=== PATIENT | male | born 1930 | race Caucasian/White ===

== ENCOUNTER → 2016-09-23 | Outpatient (CLI) | payer OTHER ==
--- NOTE | 2016-09-23 15:08 | MR ---
MRI of the Right Shoulder History: Shoulder pain. Technique: Axial proton density, oblique coronal, and sagittal T1 and T2 images were acquired. Findings: The supraspinatus tendon is completely torn and retracted to the glenohumeral joint level. Mild fatty atrophy of the supraspinatus muscle. The subscapularis tendon is also completely torn a nd retracted to the glenohumeral joint level, with mild fatty atrophy of the subscapularis muscle. H igh-grade partial tear of the infraspinatus tendon is present distally, with marked attenuation of fi bers and partial retraction, without fatty atrophy of muscle. Teres minor is intact. Mild chondral loss within the glenohumeral joint, without focal chondral deficit. Moderate shoulder joint effusion. No displaced labral tear. Marked attenuation of long head biceps tendon compatible with chronic tendinosis. The tendon is rosalba edly attenuated at the superior labral attachment and may be completely torn, with scarring of the te ndon in the tendon sheath more proximally. The acromioclavicular joint is moderately degenerative. Impressions 1. Full-thickness tear of supraspinatus tendon, with retraction and mild muscular atrophy. 2. Full-thickness tear of subscapularis tendon, with retraction and mild muscular atrophy. 3. Suspect full-thickness tear long head biceps tendon, intraarticular aspect, with scarring of the tendon within the tendon sheath. 4. High-grade partial tear infraspinatus tendon, with marked attenuation of distal fibers.
== END ==
LOC: FIMAGING 07:51
PROVIDERS: ATTEND Internal Medicine
DX: S46.111A Strain of muscle, fascia and tendon of long head of biceps, right arm, initial encounter (principal); S46.011A Strain of muscle(s) and tendon(s) of the rotator cuff of right shoulder, initial encounter

== ENCOUNTER 2016-10-19 08:19 | Inpatient (IN) | payer OTHER ==
[~2016-10-19 08:19] MED LIST: ceFAZolin 2 GM/DEXTROSE 100 ML IV ONE
[2016-10-19] MEDS ORDERED: CEFAZOLIN 2 GM/DEXTROSE/100 ML BAG IV ONE (08:38)
[2016-10-19] MEDS ORDERED: LIDOCAINE 1% 5 ML SDV ONE (08:39)
[2016-10-19] MEDS ORDERED: PROPOFOL 200 MG/20 ML VIAL ONE ×2 (09:24→10:54)
[2016-10-19] MEDS ORDERED: ROPIVACAINE HCL 150 MG/30 ML INJ ONE (09:24)
[2016-10-19] MEDS ORDERED: fentaNYL 250 MCG/5 ML INJ ONE (09:25)
[2016-10-19] MEDS ORDERED: LIDOCAINE 2% 5 ML SDV ONE (09:27)
[2016-10-19 09:36] LABS: INR 1.13 (0.83-1.16); PROTIME(PATIENT) 14.4 SEC (12.0-15.0)
[2016-10-19] MEDS ORDERED: BACITRACIN 50,000 UNITS/10 ML SYR IRR ONE (09:40)
[2016-10-19] MEDS ORDERED: BUPIVACAINE 0.5% 30 ML SDV ONE (09:40)
[2016-10-19] MEDS ORDERED: BUPIVACAINE/EPI 0.5% 30 ML SDV ONE (09:40)
[2016-10-19] MEDS ORDERED: POLYMYXIN B SULFATE 500,000 UNIT/10 ML SYR IRR ONE (09:41)
[2016-10-19] MEDS ORDERED: MIDAZOLAM 2 MG/2 ML VIAL ONE (10:05)
[2016-10-19] MEDS ORDERED: SKIN ADHESIVE (DERMABOND) 1 EACH TP ONE (11:44)
[2016-10-19] MEDS ORDERED: ONDANSETRON 4 MG/2 ML VIAL ONE (11:44)
[2016-10-19] MEDS ORDERED: DEXAMETHASONE 4 MG/ML VIAL ONE (11:44)
[2016-10-19] MEDS ORDERED: fentaNYL 100 MCG/2 ML INJ ONE (12:12)
--- NOTE | 2016-10-19 12:57 | GOP ---
[f rep st] OPERATIVE REPORT DATE OF OPERATION: 10/19/2016 SURGEON: Shahriar Romano MD GRINDER OPERATOR: Pato Nuñez, CSFA, LSA ANESTHESIA: Dorian Pearson MD PREOPERATIVE DIAGNOSIS: Large, full-thickness right shoulder rotator cuff tear. POSTOPERATIVE DIAGNOSIS: Large, full-thickness right shoulder rotator cuff tear. PROCEDURE PERFORMED: Right shoulder open decompression and rotator cuff repair involving the upper s ubscapularis, entire supraspinatus, and a portion of the infraspinatus. FINDINGS: INDICATIONS: The patient is an 86-year-old gentleman who had good shoulder function up until about 3 weeks ago when he had a hard fall and he lost the ability to elevate his arm. MRI shows a large ful l-thickness rotator cuff tear and bony impingement anatomy as well. Rotator cuff repair is planned. DESCRIPTION OF PROCEDURE: The patient was taken to the operating room, and an ultrasound-guided scal edmar block was provided by Dr. Pearson. He was then placed under general anesthetic. He received 2 g of IV Ancef. He was placed in a semi beach chair position with a roll beneath the right scapula t o project the shoulder forward and the right shoulder and arm were prepped and draped free in the usu al fashion. He has a DVT and PE history and therefore we were very careful about his leg positioning , used stockings, pneumatic pumpers. I made a longitudinal incision over the anterolateral corner of the shoulder after pre-injecting the incision with Marcaine with epinephrine. Dissection was lorraine d down to subcutaneous tissue and I mobilized this layer to visualize the deltoid. I found the plane between the anterior and lateral fibers of the deltoid and carried this incision up over the anterol ateral corner of the acromion and exposed the very tip of the anterolateral acromion. I used an osci llating saw vertically and horizontally to remove a very prominent bone spur. I did a bursectomy to visualize the cuff. I mobilized the rotator cuff gently, bluntly dissecting throughout the anterior shoulder over the subscapularis, superiorly at the supraspinatus, posteriorly at the infraspinatus, t o mobilize the cuff. This was a large, basically V-shaped tear. I used tag sutures in the edges of it so that I could mobilize the cuff and I could also determine its best placement on the on the bone of the humeral head. I made a bony trough with a rongeur, basically extending posteriorly from the bicipital groove. I used a [employer] device to make multiple curved transosseous tunnels, emerging in the footprint of the cuff on the greater tuberosity. I did a couple convergent sutures and this brou ght the rotator cuff more superiorly up onto the top of the head and made the overall tear size much smaller. I then used #2 FiberWire through the multiple transosseous tunnels to stand back into the t issue of the rotator cuff, reaching quite deeply so that I got good full-thickness purchase, and thes e were tied with multiple knots, and this really reduced the rotator cuff into its footprint anatomic ally. There was not undue tension, the combination of the convergent sutures and the transosseous figueroa tures nicely reapposed the cuff. Irrigation was used throughout. I closed the deltoid fascia over t he anterolateral corner of the acromion using #2 FiberWire. I then used 0 PDS, subcutaneous tissue r eceived 3-0 Monocryl, and the skin 3-0 Monoderm, with glue, Telfa, and an Opsite. The patient was pl aced in a large abduction pillow because of the deltoid approach and the large tear. There were no c omplications. Estimated blood loss was less then 30 cc. No drains, no specimens. All counts were c orrect. The patient was taken in stable condition to recovery. My medical receptionist medical assistant was a medical necessity for this challenging large open cuff repair. /[id number]/MODL
[2016-10-19] MEDS ORDERED: LACTULOSE 20 GM/30 ML UDCUP PO PRN (13:05)
[2016-10-19] MEDS ORDERED: ACETAMINOPHEN 325 MG TAB PO PRN (13:05)
[2016-10-19] MEDS ORDERED: MAGNESIUM HYDROXIDE 30 ML UDCUP PO PRN (13:05)
[2016-10-19] MEDS ORDERED: OXYCODONE/APAP 5/325 TAB PO PRN (13:05)
[2016-10-19] MEDS ORDERED: POLYETHYLENE GLYCOL 3350 17 GM PKT PO PRN (13:05)
[2016-10-19] MEDS ORDERED: BISACODYL 10 MG SUPP PR PRN (13:05)
[2016-10-19] MEDS ORDERED: ONDANSETRON 4 MG/2 ML VIAL IVP PRN (13:05)
[2016-10-19] MEDS ORDERED: D5W 1/2 NS W/ 20 KCl/L 1,000 ML IV SCH (13:15)
[2016-10-19] MEDS ORDERED: ceFAZolin 2 GM/DEXTROSE 100 ML IV SCH (14:00)
[2016-10-19] MEDS: HYDROCODONE/APAP 5/325 TAB PO PRN ×2 (14:42→21:41)
[2016-10-19] MEDS ORDERED: WARFARIN SODIUM 5 MG TAB PO ONE (16:00)
[2016-10-19] MEDS: KETOROLAC 15 MG/1 ML SDV IVP SCH (17:33)
[2016-10-19] MEDS: ceFAZolin 2 GM in D5W 100 ML IV SCH (17:34)
[2016-10-19] MEDS: SENNOSIDES/DOCUSATE SODIUM TAB PO SCH (21:37)
[2016-10-19] MEDS: ZOLPIDEM TARTRATE 5 MG TAB PO PRN (21:38)
[2016-10-19] MEDS: DOCUSATE SODIUM 100 MG CAP PO SCH (21:42)
[2016-10-20] MEDS: ceFAZolin 2 GM in D5W 100 ML IV SCH (02:00)
[2016-10-20] MEDS: KETOROLAC 15 MG/1 ML SDV IVP SCH ×3 (02:00→12:52)
[2016-10-20 05:03] LABS: INR 1.22 (0.83-1.16); PROTIME(PATIENT) 15.4 SEC (12.0-15.0)
[2016-10-20] MEDS: FINASTERIDE 5 MG TAB PO SCH (09:00)
[2016-10-20] MEDS: DOCUSATE SODIUM 100 MG CAP PO SCH ×2 (09:00→21:37)
[2016-10-20] MEDS: DONEPEZIL HCL 5 MG TAB PO SCH (09:00)
[2016-10-20] MEDS: SENNOSIDES/DOCUSATE SODIUM TAB PO SCH ×2 (09:01→21:37)
[2016-10-20] MEDS: FLUTICASONE/SALMETER 250/50MCG DISKUS IH PRN (09:17)
[2016-10-20] MEDS: TIOTROPIUM INHALER 18 MCG/DOSE 5 DOSE/MDI IH SCH (09:17)
--- NOTE | 2016-10-20 09:33 | SOAPPROG ---
SOAP Progress Note Assessment/Plan: Assessment: Afebrile. Mod pain. Wound is dry. Abd pillow is fine. Plan: Work with PT for ambulation. He has a left foot drop and normally uses a walker. We'll have to see is he can use the walker with an abd pillow on the right side. DC later today. 10/20/16 09:31 Objective: Vital Signs Temp Pulse Resp BP Pulse Ox 36.9 C 68 16 122/72 H 95 10/20/16 08:07 10/20/16 08:07 10/20/16 08:07 10/20/16 08:07 10/20/16 08:07 10/19/16 10/20/16 10/21/16 05:59 05:59 05:59 Intake Total 2605 Output Total 235 Balance 2370 PT 15.4 SEC (12.0-15.0) H 10/20/16 04:30 INR 1.22 (0.83-1.16) H 10/20/16 04:30 ICD10 Worksheet Patient Problems: Problems Problem Status Diagnosed Intramuscular hematoma Acute Radiculopathy of lumbar region Acute TIA (transient ischemic attack) Acute
[2016-10-20] MEDS ORDERED: WARFARIN SODIUM 7.5 MG TAB PO SCH (16:00)
[2016-10-20] MEDS: WARFARIN SODIUM 5 MG TAB PO SCH (16:10)
[2016-10-20] MEDS: HYDROCODONE/APAP 5/325 TAB PO PRN (18:01)
[2016-10-20] MEDS: ZOLPIDEM TARTRATE 5 MG TAB PO PRN (21:37)
[2016-10-21] MEDS: HYDROCODONE/APAP 5/325 TAB PO PRN ×2 (03:27→20:08)
[2016-10-21 05:33] LABS: INR 1.52 (0.83-1.16); PROTIME(PATIENT) 18.3 SEC (12.0-15.0)
[2016-10-21] MEDS: DOCUSATE SODIUM 100 MG CAP PO SCH ×2 (07:47→21:13)
[2016-10-21] MEDS: DONEPEZIL HCL 5 MG TAB PO SCH (07:47)
[2016-10-21] MEDS: FINASTERIDE 5 MG TAB PO SCH (07:47)
[2016-10-21] MEDS: SENNOSIDES/DOCUSATE SODIUM TAB PO SCH ×2 (07:47→21:13)
[2016-10-21] MEDS: FLUTICASONE/SALMETER 250/50MCG DISKUS IH PRN (08:16)
[2016-10-21] MEDS: TIOTROPIUM INHALER 18 MCG/DOSE 5 DOSE/MDI IH SCH (08:17)
[2016-10-21] MEDS ORDERED: Herbals/Supplements -Info Only PO SCH (09:00)
--- NOTE | 2016-10-21 13:42 | SOAPPROG ---
SOAP Progress Note Assessment/Plan: Assessment: POD#2, R rotator cuff repair, pain controlled Plan: 10/21/16 13:41 mobility and balance issues, awaiting rehab placement Objective: Vital Signs Temp Pulse Resp BP Pulse Ox 36.8 C 79 16 162/78 H 92 10/21/16 11:43 10/21/16 11:43 10/21/16 11:43 10/21/16 11:43 10/21/16 11:43 10/20/16 10/21/16 10/22/16 05:59 05:59 05:59 Intake Total 2605 900 225 Output Total 235 850 250 Balance 2370 50 -25 PT 18.3 SEC (12.0-15.0) H 10/21/16 04:29 INR 1.52 (0.83-1.16) H 10/21/16 04:29 ICD10 Worksheet Patient Problems: Problems Problem Status Diagnosed Intramuscular hematoma Acute Radiculopathy of lumbar region Acute TIA (transient ischemic attack) Acute
[2016-10-21] MEDS: WARFARIN SODIUM 5 MG TAB PO SCH (16:04)
[2016-10-21] MEDS: ZOLPIDEM TARTRATE 5 MG TAB PO PRN (21:13)
[2016-10-22 05:10] LABS: INR 1.68 (0.83-1.16); PROTIME(PATIENT) 19.8 SEC (12.0-15.0)
[2016-10-22] MEDS: DOCUSATE SODIUM 100 MG CAP PO SCH ×2 (08:18→21:45)
[2016-10-22] MEDS: SENNOSIDES/DOCUSATE SODIUM TAB PO SCH ×2 (08:18→21:44)
[2016-10-22] MEDS: DONEPEZIL HCL 5 MG TAB PO SCH (08:19)
[2016-10-22] MEDS: FINASTERIDE 5 MG TAB PO SCH (08:19)
[2016-10-22] MEDS: HYDROCODONE/APAP 5/325 TAB PO PRN ×4 (08:21→21:44)
[2016-10-22] MEDS: TIOTROPIUM INHALER 18 MCG/DOSE 5 DOSE/MDI IH SCH (09:07)
[2016-10-22] MEDS: FLUTICASONE/SALMETER 250/50MCG DISKUS IH PRN (09:07)
[2016-10-22] MEDS: WARFARIN SODIUM 5 MG TAB PO SCH (17:16)
--- NOTE | 2016-10-22 17:53 | SOAPPROG ---
SOAP Progress Note Assessment/Plan: Assessment: POD#2, R rotator cuff repair, pain controlled POD#2, comfortable in pillow, dressing clean Plan: 10/21/16 13:41 mobility and balance issues, awaiting rehab placement 10/22/16 17:52 to rehab tomorrow, [facility] in chart Objective: Vital Signs Temp Pulse Resp BP Pulse Ox 36.8 C 69 18 117/54 L 93 10/22/16 12:26 10/22/16 12:26 10/22/16 12:26 10/22/16 12:26 10/22/16 12:26 10/21/16 10/22/16 10/23/16 05:59 05:59 05:59 Intake Total 900 475 Output Total 850 975 Balance 50 -500 PT 19.8 SEC (12.0-15.0) H 10/22/16 04:19 INR 1.68 (0.83-1.16) H 10/22/16 04:19 ICD10 Worksheet Patient Problems: Problems Problem Status Diagnosed Intramuscular hematoma Acute Radiculopathy of lumbar region Acute TIA (transient ischemic attack) Acute
[2016-10-22] MEDS: ZOLPIDEM TARTRATE 5 MG TAB PO PRN (21:45)
[2016-10-23 05:24] LABS: INR 1.68 (0.83-1.16); PROTIME(PATIENT) 19.8 SEC (12.0-15.0)
[2016-10-23 07:32] VITALS: BP 144/80; PULSE 76; RESP 20; TEMP 98.3; O2SAT 2
[2016-10-23] MEDS: FINASTERIDE 5 MG TAB PO SCH (08:34)
[2016-10-23] MEDS: SENNOSIDES/DOCUSATE SODIUM TAB PO SCH (08:34)
[2016-10-23] MEDS: DONEPEZIL HCL 5 MG TAB PO SCH (08:34)
[2016-10-23] MEDS: DOCUSATE SODIUM 100 MG CAP PO SCH (08:34)
[2016-10-23] MEDS: TIOTROPIUM INHALER 18 MCG/DOSE 5 DOSE/MDI IH SCH (08:35)
--- NOTE | 2016-10-23 14:55 | SOAPPROG ---
SOAP Progress Note Assessment/Plan: Assessment: POD#2, R rotator cuff repair, pain controlled POD#2, comfortable in pillow, dressing clean POD#3 ready for transfer Plan: 10/21/16 13:41 mobility and balance issues, awaiting rehab placement 10/22/16 17:52 to rehab tomorrow, [facility] in chart 10/23/16 14:55 to rehab today Objective: Vital Signs Temp Pulse Resp BP Pulse Ox 36.8 C 76 20 144/80 H 2 L 10/23/16 07:31 10/23/16 07:31 10/23/16 07:31 10/23/16 07:31 10/23/16 07:31 10/22/16 10/23/16 10/24/16 05:59 05:59 05:59 Intake Total 475 Output Total 975 650 150 Balance -500 -650 -150 PT 19.8 SEC (12.0-15.0) H 10/23/16 04:17 INR 1.68 (0.83-1.16) H 10/23/16 04:17 ICD10 Worksheet Patient Problems: Problems Problem Status Diagnosed Intramuscular hematoma Acute Radiculopathy of lumbar region Acute TIA (transient ischemic attack) Acute
--- NOTE | 2016-10-23 15:15 | PDIAF ---
- Diagnosis Code Status: Full Code - Medication Management Discharge Medications: Medications to Continue on Transfer Donepezil HCl [Aricept 5 MG (*)] 5 mg PO DAILY 09/28/15 [Last Taken 10/19/16] Tiotropium Inhaler [Spiriva Handihaler] 18 mcg IH DAILY 09/29/15 [Last Taken 02/27] Docusate Sodium [Colace 100 MG (*)] 100 mg PO BID 10/08/16 [Last Taken 10/19/16] Finasteride [Proscar 5 MG (*)] 5 mg PO DAILY 10/08/16 [Last Taken 10/19/16] Herbals/Supplements -Info Only 1 ea PO DAILY 10/08/16 [Last Taken 10/12/16] Fluticasone/Salmeter 250/50Mcg [Advair 250/50 (*)] 2 puffs IH DAILY PRN [Last Taken 10/18/16] Warfarin Sodium [Coumadin 7.5MG (*)] 7.5 mg PO DAILY16 10/19/16 [Last Taken ] Zolpidem Tartrate [Ambien 10 mg] 10 mg PO HS 10/19/16 [Last Taken 10/18/16] Acetaminophen [Tylenol 325mg (*)] 325 - 650 mg PO Q4HRS PRN #0 tab 10/20/16 [ Last Taken Unknown] oxyCODONE/APAP 5/325 [Percocet 5/325 (*)] 1 - 2 tab PO Q3HRS PRN #40 tab [Last Taken Unknown] Discharge Medications: Refer to the Discharge Home Medication list for PRN reason. - Orders Services needed: Registered Nurse, Physical Therapy, Occupational Therapy Diet Recommendation: no restrictions on diet Diet Texture: Regular Texture Diet - Follow Up Care Current Providers and Referrals: Woody Muñoz MD [Primary Care Provider] - Shahriar Romano MD [Medical Doctor] -
[2016-10-23] MEDS: WARFARIN SODIUM 5 MG TAB PO SCH (15:29)
[2016-10-23] MEDS: HYDROCODONE/APAP 5/325 TAB PO PRN (15:32)
[2016-10-23] MEDS ORDERED: WARFARIN SODIUM 1 MG TAB PO SCH (16:00)
== END 2016-10-23 16:58 | DRG 512 ==
LOC: F3N 08:19 → INTOOBSV 08:19 → EDSTATUS 10:00 → F3N 13:25 → OBSVTOIN 10-20 14:38
PROVIDERS: ADMIT Orthopaedic Surgery; ATTEND Orthopaedic Surgery
DX: S46.011A Strain of muscle(s) and tendon(s) of the rotator cuff of right shoulder, initial encounter (principal); W19.XXXA Unspecified fall, initial encounter; Z86.711 Personal history of pulmonary embolism
CPT/HCPCS: 97116-GP; 97161-GP; 97165-GO; 97530-GP; 97535-GO; G8978-GP-CJ; G8979-GP-CI; G8987-GO-CK; G8988-GO-CI; J0690; J1100; J1885; J2250; J2405; J2704; J2795; J3010

== ENCOUNTER → 2017-01-21 | Outpatient (CLI) | payer OTHER | LOC: CIMAGING 11:49 | PROVIDERS: ATTEND Internal Medicine | DX: R79.89 Other specified abnormal findings of blood chemistry (principal); N28.1 Cyst of kidney, acquired | CPT/HCPCS: 76770-PO ==

== ENCOUNTER → 2017-07-14 | Outpatient (CLI) | payer OTHER | LOC: SBRMNEURO 21:00 | PROVIDERS: ATTEND Physician Assistant Medical | DX: G47.33 Obstructive sleep apnea (adult) (pediatric) (principal); G47.36 Sleep related hypoventilation in conditions classified elsewhere; G47.61 Periodic limb movement disorder ==

== ENCOUNTER → 2018-01-14 | Outpatient (CLI) | payer OTHER | LOC: FIMAGING 15:13 | PROVIDERS: ATTEND Internal Medicine | DX: M51.16 Intervertebral disc disorders with radiculopathy, lumbar region (principal); M51.34 Other intervertebral disc degeneration, thoracic region; M51.37 Other intervertebral disc degeneration, lumbosacral region; M48.061 Spinal stenosis, lumbar region without neurogenic claudication; M48.04 Spinal stenosis, thoracic region; M48.07 Spinal stenosis, lumbosacral region ==

== ENCOUNTER 2018-02-02 12:55 | Day surgery (SDC) | payer OTHER ==
[2018-02-02] MEDS ORDERED: ALTEPLASE 2 MG VIAL IVP PRN (13:03)
[2018-02-02] MEDS ORDERED: MEPERIDINE 25 MG/ML SYR IVP PRN (13:03)
[2018-02-02] MEDS ORDERED: HEPARIN 10,000 UNIT/10 ML MDV (1,000 UNIT/ML) IVP PRN (13:03)
[2018-02-02] MEDS ORDERED: NALOXONE HCL 0.4 MG/ML INJ IVP PRN (13:03)
[2018-02-02] MEDS ORDERED: FLUMAZENIL 0.5 MG/5 ML MDV IVP PRN (13:03)
[2018-02-02] MEDS ORDERED: GLUCAGON HCL 1 MG VIAL IVP PRN (13:03)
[2018-02-02] MEDS ORDERED: MIDAZOLAM 2 MG/2 ML VIAL IVP PRN (13:03)
[2018-02-02] MEDS ORDERED: fentaNYL 100 MCG/2 ML INJ IVP PRN (13:03)
[2018-02-02] MEDS ORDERED: PROTAMINE SULFATE 50 MG/5 ML VIAL IVP PRN (13:03)
[2018-02-02] MEDS ORDERED: NS 1,000 ML IV SCH (13:15)
[2018-02-02] MEDS ORDERED: TRIAMCINOLONE ACETONIDE 200 MG/5 ML MDV IM ONE (13:48)
[2018-02-02] MEDS ORDERED: LIDOCAINE 1% 300 MG/30 ML SDV ONE (13:48)
[2018-02-02] MEDS ORDERED: NALOXONE HCL 0.4 MG/ML INJ ONE (14:08)
[2018-02-02] MEDS ORDERED: MIDAZOLAM 2 MG/2 ML VIAL ONE (14:11)
[2018-02-02] MEDS ORDERED: fentaNYL 100 MCG/2 ML INJ ONE (14:11)
[2018-02-02] MEDS ORDERED: FLUMAZENIL 0.5 MG/5 ML MDV IVP ONE (14:11)
--- NOTE | 2018-02-02 15:24 | PDPROPOC ---
Sedation Plan of Care Sedation Plan of Care: vital signs stable, mental status noted, patient educated of risks, benefits, alternatives, patient can tolerate sedation ASA Classification: ASA 3 Planned drugs: fentanyl, midazolam Mallampati Score: Class 1 Mallampati Reference Image: Patient passed 3-3-2 rule?: Yes
--- NOTE | 2018-02-02 15:24 | PDGENHP ---
History & Physical Chief Complaint: BACK PAIN History of Present Illness: LBP. CHRONIC LT LEG WEAKENSS. NEW ONSET RT LEG WEAKNESS AND PAIN DOWN TO KNEE. Pertinent Past, Social, Family History: CYSTOSCOPY, TURP, ROTATOR CUFF, APPENDECTOMY, TONSILLECTOMY, IVC FILTER PLACEMENT Relevant Physical Exam: 04/22 PAIN Cardiorespiratory Assessment: RRR, CTA
[2018-02-02] MEDS ORDERED: ONDANSETRON 4 MG/2 ML VIAL IVP PRN (15:37)
--- NOTE | 2018-02-02 15:50 | PDRADPN ---
Radiology Procedure Note Date of Procedure: 02/02/18 Radiologist: Lana Aranda Anesthesia: IV Sedation Pre-op Diagnosis: nerve impingement Post-op Diagnosis: same Indication: weakness and pain Procedure: RT L4 TFESI and SNRB Finding(s): positive reproduction of pain Inf/Abcess present in the surg proc area at time of surgery?: No Complications: none
[2018-02-02 17:05] VITALS: BP 134/83
== END 2018-02-02 17:03 | disposition home or self-care (01) ==
LOC: FIMAGING 12:55
PROVIDERS: ATTEND Internal Medicine
PROC: 3E0S33Z Introduction of Anti-inflammatory into Epidural Space, Percutaneous Approach (ICD-10-PCS; principal; 2018-02-02 15:35)
DX: M54.16 Radiculopathy, lumbar region (principal); M51.36 Other intervertebral disc degeneration, lumbar region; M48.07 Spinal stenosis, lumbosacral region
CPT/HCPCS: J2250; J2310; J3010; J3301

== ENCOUNTER 2018-08-23 10:39 | Day surgery (SDC) | payer OTHER ==
[2018-08-23] MEDS ORDERED: MIDAZOLAM 2 MG/2 ML VIAL IVP PRN (11:29)
[2018-08-23] MEDS ORDERED: NALOXONE HCL 0.4 MG/ML INJ IVP PRN (11:29)
[2018-08-23] MEDS ORDERED: FLUMAZENIL 0.5 MG/5 ML MDV IVP PRN (11:29)
[2018-08-23] MEDS ORDERED: fentaNYL 100 MCG/2 ML INJ IVP PRN (11:29)
[2018-08-23] MEDS ORDERED: MEPERIDINE 25 MG/ML SYR IVP PRN (11:29)
[2018-08-23] MEDS ORDERED: NS 1,000 ML IV SCH (11:30)
--- NOTE | 2018-08-23 12:21 | PDGENHP ---
History & Physical Chief Complaint: RECURREN RT LEG PAIN History of Present Illness: PREVIOUS INJECTIONS HAVE HELPED. WEARS OFF EVERY THREE MONTHS. Pertinent Past, Social, Family History: CYSTO, TURP, ROTATOR CUFF Relevant Physical Exam: PAIN DOWN RT ANTERIOR AND LATERAL THIGH. Cardiorespiratory Assessment: RRR, CTA
--- NOTE | 2018-08-23 12:22 | PDPROPOC ---
Sedation Plan of Care Sedation Plan of Care: vital signs stable, mental status noted, patient educated of risks, benefits, alternatives, patient can tolerate sedation ASA Classification: ASA 2 Planned drugs: fentanyl, midazolam Mallampati Score: Class 2 Mallampati Reference Image: Patient passed 3-3-2 rule?: Yes
[2018-08-23] MEDS ORDERED: TRIAMCINOLONE ACETONIDE 200 MG/5 ML MDV IM ONE (12:23)
[2018-08-23] MEDS ORDERED: IOPAMIDOL (ISOVUE-M 300) 15 ML VIAL ONE (12:23)
--- NOTE | 2018-08-23 13:27 | PDRADPN ---
Radiology Procedure Note Date of Procedure: 08/23/18 Radiologist: Lana Aranda Anesthesia: IV Sedation Pre-op Diagnosis: RECURRENT LBP WITH RADICULOPATHY Post-op Diagnosis: SAME Indication: REPEAT BACK INJECTION NEEDED Procedure: RT L4 TFESI Finding(s): SEE REPORT Inf/Abcess present in the surg proc area at time of surgery?: No
[2018-08-23 14:14] VITALS: BP 129/67
== END 2018-08-23 14:48 | disposition home or self-care (01) ==
LOC: FIMAGING 10:39
PROVIDERS: ATTEND Internal Medicine
PROC: 3E0S33Z Introduction of Anti-inflammatory into Epidural Space, Percutaneous Approach (ICD-10-PCS; principal; 2018-08-23 13:20)
PROC: 3E0S3BZ Introduction of Anesthetic Agent into Epidural Space, Percutaneous Approach (ICD-10-PCS; principal; 2018-08-23 13:20)
DX: M54.16 Radiculopathy, lumbar region (principal)
CPT/HCPCS: J2250; J3010; J3301; Q9967

== ENCOUNTER 2018-11-29 10:18 | Day surgery (SDC) | payer OTHER ==
[2018-11-29] MEDS ORDERED: NALOXONE HCL 0.4 MG/ML INJ IVP PRN (10:55)
[2018-11-29] MEDS ORDERED: MIDAZOLAM 2 MG/2 ML VIAL IVP PRN (10:55)
[2018-11-29] MEDS ORDERED: FLUMAZENIL 0.5 MG/5 ML MDV IVP PRN (10:55)
[2018-11-29] MEDS ORDERED: fentaNYL 100 MCG/2 ML INJ IVP PRN (10:55)
[2018-11-29] MEDS ORDERED: NS 1,000 ML IV SCH (11:00)
--- NOTE | 2018-11-29 12:08 | PDPROPOC ---
Sedation Plan of Care Sedation Plan of Care: vital signs stable, mental status noted, patient educated of risks, benefits, alternatives, patient can tolerate sedation ASA Classification: ASA 2 Planned drugs: fentanyl, midazolam Mallampati Score: Class 1 Mallampati Reference Image: Patient passed 3-3-2 rule?: Yes
--- NOTE | 2018-11-29 12:10 | PDGENHP ---
History & Physical Chief Complaint: RECURRENT BACK PAIN History of Present Illness: PREVIOUS INJECTIONS HELPED PAIN. SAME LOCATION. Pertinent Past, Social, Family History: CYSTOSCOPY, TURP, ROTATOR CUFF, APPENDECTOMY, TONSILLECTOMY, IVC FILTER Relevant Physical Exam: RT LEG PAIN FROM BACK TO KNEE Cardiorespiratory Assessment: RRR, CTA
[2018-11-29] MEDS ORDERED: IOPAMIDOL (ISOVUE-M 300) 15 ML VIAL ONE (12:14)
[2018-11-29] MEDS ORDERED: TRIAMCINOLONE ACETONIDE 200 MG/5 ML MDV IM ONE (12:14)
[2018-11-29 12:48] VITALS: BP 148/73
== END 2018-11-29 13:45 | disposition home or self-care (01) ==
LOC: FIMAGING 10:18
PROVIDERS: ATTEND Radiology Diagnostic Radiology
PROC: 3E0S3BZ Introduction of Anesthetic Agent into Epidural Space, Percutaneous Approach (ICD-10-PCS; principal; 2018-11-29)
PROC: B01B1ZZ Fluoroscopy of Spinal Cord using Low Osmolar Contrast (ICD-10-PCS; principal; 2018-11-29)
PROC: 3E0S33Z Introduction of Anti-inflammatory into Epidural Space, Percutaneous Approach (ICD-10-PCS; principal; 2018-11-29)
DX: M54.16 Radiculopathy, lumbar region (principal)
CPT/HCPCS: J2250; J2310; J3010; J3301; Q9967

== ENCOUNTER → 2018-12-19 | Outpatient (CLI) | payer OTHER | LOC: FIMAGING 10:44 | PROVIDERS: ATTEND Internal Medicine | DX: M50.31 Other cervical disc degeneration, high cervical region (principal); M50.321 Other cervical disc degeneration at C4-C5 level; M50.322 Other cervical disc degeneration at C5-C6 level; M50.323 Other cervical disc degeneration at C6-C7 level; M50.33 Other cervical disc degeneration, cervicothoracic region; M99.71 Connective tissue and disc stenosis of intervertebral foramina of cervical region; M12.88 Other specific arthropathies, not elsewhere classified, other specified site ==

== ENCOUNTER → 2019-01-02 | Outpatient (CLI) | payer OTHER | LOC: CIMAGING 13:15 | PROVIDERS: ATTEND Podiatrist | DX: L97.521 Non-pressure chronic ulcer of other part of left foot limited to breakdown of skin (principal); M20.42 Other hammer toe(s) (acquired), left foot; M81.0 Age-related osteoporosis without current pathological fracture | CPT/HCPCS: 73630-PO ==

== ENCOUNTER → 2019-01-10 | Outpatient (CLI) | payer OTHER | DX: G62.9 Polyneuropathy, unspecified (principal) ==

== ENCOUNTER → 2019-01-14 | Outpatient (CLI) | payer OTHER | LOC: FIMAGING 14:05 | PROVIDERS: ATTEND Internal Medicine | DX: L03.116 Cellulitis of left lower limb (principal); I89.0 Lymphedema, not elsewhere classified ==

== ENCOUNTER → 2019-01-23 | Outpatient (CLI) | payer OTHER | LOC: CIMAGING 14:21 | PROVIDERS: ATTEND Internal Medicine | DX: M79.661 Pain in right lower leg (principal); Z79.01 Long term (current) use of anticoagulants | CPT/HCPCS: 93971-PO ==

== ENCOUNTER → 2019-01-30 | Outpatient (CLI) | payer OTHER | LOC: FIMAGING 14:02 | PROVIDERS: ATTEND Internal Medicine | DX: M51.34 Other intervertebral disc degeneration, thoracic region (principal); M51.36 Other intervertebral disc degeneration, lumbar region; M51.37 Other intervertebral disc degeneration, lumbosacral region; M43.17 Spondylolisthesis, lumbosacral region ==

== ENCOUNTER → 2019-02-03 | Outpatient (CLI) | payer OTHER | LOC: FIMAGING 09:08 | PROVIDERS: ATTEND Internal Medicine | DX: M53.3 Sacrococcygeal disorders, not elsewhere classified (principal) | CPT/HCPCS: 78306; A9503 ==

== ENCOUNTER 2019-02-14 10:11 | Day surgery (SDC) | payer OTHER | END 2019-02-14 13:41 | disposition home or self-care (01) | LOC: FIMAGING 10:11 ==

== ENCOUNTER → 2019-02-24 | Outpatient (CLI) | payer OTHER | LOC: CIMAGING 12:39 ==

== ENCOUNTER 2019-03-07 13:07 | Day surgery (SDC) | payer OTHER | END 2019-03-07 15:00 | disposition home or self-care (01) | LOC: FIMAGING 13:07 ==